=== PATIENT | male | born 1950 | race Native Hawaiian/Other Pacific Islander ===

== ENCOUNTER 2020-07-28 10:48 | Outpatient (CLI) | payer OTHER, BC | END 2020-07-28 20:13 | disposition home or self-care (01) | LOC: INF 10:48 | PROVIDERS: ATTEND Internal Medicine | DX: Z23 Encounter for immunization (principal) | CPT/HCPCS: 96372 ==

== ENCOUNTER 2020-08-25 08:39 | Outpatient (CLI) | payer OTHER, BC | END 2020-08-25 19:54 | disposition home or self-care (01) | LOC: INF 08:39 | PROVIDERS: ATTEND Internal Medicine | DX: Z23 Encounter for immunization (principal) | CPT/HCPCS: 96372 ==